=== PATIENT | male | born 1960 | race African-American/Black ===

== ENCOUNTER 2019-06-06 20:15 | Inpatient (IN) | payer OTHER, MEDICAID ==
[~2019-06-06] VITALS: Ht 200.7 cm; Wt 110.7 kg
[~2019-06-06 20:15] MED LIST: AMLO10TA80 PO; ASPI-1393 PO; ATOR-2 PO; ELIQUIS PO; GABA-531 PO; HYDR25TA PO; ISOS30TA6 PO; LISI-604 PO; SITA100T11 PO
[2019-06-06] MEDS ORDERED: ACETAMINOPHEN 325MG TABLET PO STA (20:32)
[2019-06-06] MEDS ORDERED: SODIUM CHLORIDE 0.9% 1000ML BAG (SEPSIS BOLUS) IV ONE (20:45)
[2019-06-06] MEDS ORDERED: VANCOMYCIN 1 G PREMIX 200 ML IV ONE (20:45)
[2019-06-06] MEDS ORDERED: PIPERACILLIN/TAZ 3.375G PREMIX 50 ML IV ONE (20:45)
[2019-06-06 21:09] LABS: HEMATOCRIT. 35.6 % (42.0-52.0); HEMOGLOBIN. 11.9 g/dL (14.0-18.0); MEAN CORPUSCULAR HEMOGLOBIN 28.9 pg (28.0-32.0); MEAN PLATELET VOLUME 9.7 fl (7.4-10.4); PLATELET 86 x1000/uL (130-400); RED BLOOD CELL COUNT 4.14 mill/uL (4.7-6.1); RED CELL DISTRIBUTION WIDTH 14.8 % (11.6-14.6)
[2019-06-06 21:16] LABS: CLARITY URINE CLEAR (CLEAR); COLOR URINE YELLOW (YELLOW); KETONES URINE NEGATIVE (NEGATIVE); LEUKOCYTE ESTERASE URINE 2+ (NEGATIVE); NITRITE URINE POSITIVE (NEGATIVE); OCCULT BLOOD URINE 2+ (NEGATIVE); PROTEIN URINE 2+ (NEGATIVE); SPECIFIC GRAVITY URINE 1.018 (1.005-1.030)
[2019-06-06 21:19] LABS: CHLORIDE 107 mEq/L (98-107)
[2019-06-06] MEDS ORDERED: ASPIRIN 325MG EC TABLET PO ONE (22:00)
[2019-06-06 22:18] LABS: PLATELET ESTIMATE DECREASED
[2019-06-06 23:00] VITALS: BP 103/72
[2019-06-06 23:05] VITALS: BP 103/72
[2019-06-07] MEDS ORDERED: PRED5DRO22 OP (00:36)
[2019-06-07] MEDS ORDERED: DORZ10DR12 OP (00:36)
[2019-06-07] MEDS ORDERED: METO-411 PO (00:36)
[2019-06-07] MEDS ORDERED: INSLIS SUBCUT (00:36)
[2019-06-07] MEDS ORDERED: LATA2.5D2 OP (00:36)
[2019-06-07] MEDS ORDERED: ATRO2DRO OP (00:36)
[2019-06-07] MEDS ORDERED: INSU300I SQ (00:36)
[2019-06-07 04:00] VITALS: BP 117/79
[2019-06-07] MEDS ORDERED: DEXTROSE 50% WATER 50ML SYRINGE IV PRN (04:00)
[2019-06-07] MEDS ORDERED: ACETAMINOPHEN 325MG TABLET PO PRN (04:00)
[2019-06-07] MEDS ORDERED: CEFTRIAXONE 1 G PREMIX 50 ML IV SCH (06:00)
[2019-06-07] MEDS: BLOOD SUGAR DIAGNOSTIC STRIP TEST SCH ×4 (06:13→21:54)
[2019-06-07] MEDS: INSULIN LISPRO 100 UNITS/ML SUBCUT SCH ×4 (06:13→21:00)
[2019-06-07 07:21] LABS: HEMATOCRIT. 36.4 % (42.0-52.0); HEMOGLOBIN. 12.4 g/dL (14.0-18.0); MEAN CORPUSCULAR HEMOGLOBIN 29.1 pg (28.0-32.0); MEAN CORPUSCULAR VOLUME 85.2 fL (80.0-94.0); MEAN PLATELET VOLUME 9.7 fl (7.4-10.4); PLATELET 102 x1000/uL (130-400); RED BLOOD CELL COUNT 4.27 mill/uL (4.7-6.1); RED CELL DISTRIBUTION WIDTH 14.3 % (11.6-14.6)
[2019-06-07 07:54] LABS: CHLORIDE 110 mEq/L (98-107)
[2019-06-07 08:00] VITALS: BP 122/65
[2019-06-07] MEDS: METOPROLOL TARTRATE 100MG TABLET PO SCH (08:55)
[2019-06-07] MEDS: LISINOPRIL 20MG TABLET PO SCH (08:55)
[2019-06-07] MEDS: ASPIRIN 81MG TABLET PO SCH (08:55)
[2019-06-07] MEDS: GABAPENTIN 300MG CAPSULE PO SCH (08:55)
[2019-06-07] MEDS ORDERED: PIPERACILLIN/TAZOBACTAM 2.25 G in DEXTROSE 5% WATER 50 ML IV SCH (10:45)
[2019-06-07 12:00] VITALS: BP 118/75
[2019-06-07] MEDS ORDERED: PIPERACILLIN/TAZOBACTAM 3.375 G in DEXT 5% WATER 100 ML IV SCH (13:00)
[2019-06-07 13:51] LABS: PLATELET ESTIMATE SLIGHTLY DECREASED
[2019-06-07] MEDS: VANCOMYCIN 1 G PREMIX 200 ML IV SCH (14:20)
[2019-06-07 16:00] VITALS: BP 128/75
[2019-06-07] MEDS ORDERED: IPRATROPIUM/ALBUTEROL 0.5-3(2.5)MG/3ML NEB HHN PRN (16:00)
[2019-06-07] MEDS ORDERED: DIPHENHYDRAMINE 50MG/ML VIAL IV PRN (16:00)
[2019-06-07] MEDS ORDERED: ONDANSETRON HCL 4MG/2ML INJ IV PRN (16:00)
[2019-06-07] MEDS ORDERED: HYDRALAZINE 20MG/ML VIAL IV PRN (16:00)
[2019-06-07] MEDS ORDERED: HYDROCODONE/ACETAMINOPHEN 5/325MG TABLET PO PRN (16:00)
[2019-06-07] MEDS ORDERED: LACTULOSE 20G/30ML UDC PO PRN (16:00)
[2019-06-07 17:08] LABS: BG BASE EXCESS -2.9 mmol/L (-2.0-2.0); BG DEOXYHEMOGLOBIN 3.6 % (0.0-5.0); BG FRACTION INSPIRED OXYGEN 21; BG HCO3 ACT 20.8 mmol/L (22.0-26.0); BG METHEMOGLOBIN 0.4 % (0.0-1.5); BG OXYGEN SATURATION 96.3 % (92.0-98.5); BG PCO2 32.9 mmHg (35.0-45.0); BG PH 7.419 (7.350-7.450); BG PO2 86.9 mmHg (75.0-100.0); BG SAMPLE SITE RIGHT BRACHIAL; BG TOTAL HEMOGLOBIN 12.6 g/dL (12.0-18.0); BG VENT MODE ROOM AIR
[2019-06-07 19:14] LABS: INR 1.2
[2019-06-07 20:00] VITALS: BP 148/90
[2019-06-07] MEDS: ATORVASTATIN CALCIUM 40MG TABLET PO SCH (21:52)
[2019-06-07] MEDS: APIXABAN 5 MG TABLET PO SCH (21:52)
[2019-06-07] MEDS: PIPERACILLIN/TAZOBACTAM 3.375 G in DEXT 5% WATER 100 ML IV SCH (22:43)
[2019-06-08] VITALS (7 sets, daily range): BP systolic 100–134; BP diastolic 58–83
[2019-06-08] MEDS: VANCOMYCIN 1 G PREMIX 200 ML IV SCH (01:36)
[2019-06-08] MEDS: PIPERACILLIN/TAZOBACTAM 3.375 G in DEXT 5% WATER 100 ML IV SCH ×2 (04:38→10:45)
[2019-06-08 06:25] LABS: CHLORIDE 106 mEq/L (98-107)
[2019-06-08 06:43] LABS: BASOPHILS % 0.6 % (0.0-2.0); EOSINOPHILS % 1.2 % (0.0-5.0); HEMOGLOBIN. 11.9 g/dL (14.0-18.0); LYMPHOCYTES % 7.8 % (20.0-50.0); MEAN CORPUSCULAR HEMOGLOBIN 28.8 pg (28.0-32.0); MEAN CORPUSCULAR VOLUME 84.8 fL (80.0-94.0); MEAN PLATELET VOLUME 10.3 fl (7.4-10.4); MONOCYTES % 8.5 % (2.0-8.0); NEUTROPHILS % 81.9 % (40.0-76.0); PLATELET 98 x1000/uL (130-400); RED BLOOD CELL COUNT 4.13 mill/uL (4.7-6.1); RED CELL DISTRIBUTION WIDTH 14.1 % (11.6-14.6)
[2019-06-08] MEDS: BLOOD SUGAR DIAGNOSTIC STRIP TEST SCH ×4 (07:26→21:05)
[2019-06-08] MEDS: INSULIN LISPRO 100 UNITS/ML SUBCUT SCH ×4 (07:28→21:26)
[2019-06-08] MEDS: LISINOPRIL 20MG TABLET PO SCH (10:41)
[2019-06-08] MEDS: METOPROLOL TARTRATE 100MG TABLET PO SCH (10:42)
[2019-06-08] MEDS: ASPIRIN 81MG TABLET PO SCH (10:42)
[2019-06-08] MEDS: APIXABAN 5 MG TABLET PO SCH ×2 (10:42→21:25)
[2019-06-08] MEDS: GABAPENTIN 300MG CAPSULE PO SCH (10:42)
[2019-06-08] MEDS ORDERED: LEVOFLOXACIN 500MG PREMIX 100 ML IV SCH (16:00)
[2019-06-08] MEDS ORDERED: VANCOMYCIN 1250MG in DEXTROSE 5% WATER 250ML IV SCH (16:00)
[2019-06-08] MEDS: TAMSULOSIN HCL 0.4MG SR CAPSULE PO SCH (18:12)
[2019-06-08] MEDS: ATORVASTATIN CALCIUM 40MG TABLET PO SCH (21:25)
[2019-06-09] MEDS: BLOOD SUGAR DIAGNOSTIC STRIP TEST SCH ×2 (06:56→12:55)
[2019-06-09] MEDS: INSULIN LISPRO 100 UNITS/ML SUBCUT SCH ×2 (06:57→14:09)
[2019-06-09 08:13] LABS: CHLORIDE 107 mEq/L (98-107)
[2019-06-09 08:17] LABS: BASOPHILS % 0.6 % (0.0-2.0); EOSINOPHILS % 4.6 % (0.0-5.0); HEMATOCRIT. 36.6 % (42.0-52.0); HEMOGLOBIN. 12.2 g/dL (14.0-18.0); LYMPHOCYTES % 15.2 % (20.0-50.0); MEAN CORPUSCULAR HEMOGLOBIN 28.4 pg (28.0-32.0); MEAN CORPUSCULAR VOLUME 85.3 fL (80.0-94.0); MEAN PLATELET VOLUME 9.5 fl (7.4-10.4); MONOCYTES % 14.5 % (2.0-8.0); NEUTROPHILS % 65.1 % (40.0-76.0); PLATELET 104 x1000/uL (130-400); RED BLOOD CELL COUNT 4.29 mill/uL (4.7-6.1); RED CELL DISTRIBUTION WIDTH 14.2 % (11.6-14.6)
[2019-06-09 08:38] VITALS: BP 115/61
[2019-06-09] MEDS: METOPROLOL TARTRATE 100MG TABLET PO SCH (09:00)
[2019-06-09] MEDS: GABAPENTIN 300MG CAPSULE PO SCH (10:04)
[2019-06-09] MEDS: LISINOPRIL 20MG TABLET PO SCH (10:04)
[2019-06-09] MEDS: ASPIRIN 81MG TABLET PO SCH (10:04)
[2019-06-09] MEDS: TAMSULOSIN HCL 0.4MG SR CAPSULE PO SCH (10:05)
[2019-06-09] MEDS: APIXABAN 5 MG TABLET PO SCH (10:06)
[2019-06-09 12:00] VITALS: BP 107/74
== END 2019-06-09 17:12 | disposition home or self-care (01) | DRG 872 ==
LOC: ER 20:15 → 5WST 22:13 → EDBEDREQSVC 22:14 → EDBEDREQTM 22:14 → EDBEDREQ 22:14 → ENRESERV 22:24
PROVIDERS: ADMIT Internal Medicine; ATTEND Internal Medicine
DX: A41.50 Gram-negative sepsis, unspecified (principal); N39.0 Urinary tract infection, site not specified; E86.0 Dehydration; R80.9 Proteinuria, unspecified; E11.65 Type 2 diabetes mellitus with hyperglycemia; E78.5 Hyperlipidemia, unspecified; D64.9 Anemia, unspecified; H40.9 Unspecified glaucoma; H54.61 Unqualified visual loss, right eye, normal vision left eye; E11.21 Type 2 diabetes mellitus with diabetic nephropathy; B96.1 Klebsiella pneumoniae [K. pneumoniae] as the cause of diseases classified elsewhere; E78.00 Pure hypercholesterolemia, unspecified; I08.1 Rheumatic disorders of both mitral and tricuspid valves; I48.91 Unspecified atrial fibrillation; M19.90 Unspecified osteoarthritis, unspecified site; G90.8 Other disorders of autonomic nervous system; I11.9 Hypertensive heart disease without heart failure; I25.2 Old myocardial infarction; Z79.899 Other long term (current) drug therapy; Z87.440 Personal history of urinary (tract) infections; Z89.429 Acquired absence of other toe(s), unspecified side
CPT/HCPCS: 36415; 36600; 71045; 74176; 80048; 80202; 81003; 82375; 82805; 82962; 83036; 83605; 84145; 84153; 84484; 87077; 87186; 93005; 93306; 96365; 96367; 99291; J0696; J1815; J1956; J2543; J3370; J7030; J7060; G0103